=== PATIENT | male | born 1975 | race Two or more races ===

== ENCOUNTER 2022-12-28 17:02 | Emergency (ER) | payer MEDICAID, OTHER ==
[~2022-12-28] VITALS: Ht 167.6 cm; Wt 80.7 kg
[2022-12-28 17:18] VITALS: BP 146/89; TEMP 97.9; O2SAT 99
[2022-12-28] MEDS ORDERED: PANTOPRAZOLE 40 MG VIAL ONE (17:36)
[2022-12-28] MEDS ORDERED: ONDANSETRON HCL/PF 4 MG/2 ML VIAL ONE (17:36)
[2022-12-28] MEDS ORDERED: ONDANSETRON HCL/PF 4 MG/2 ML VIAL IVP ONE (18:00)
[2022-12-28] MEDS ORDERED: IV NS 0.9% 1,000 ML BAG IV ONE (18:00)
[2022-12-28] MEDS ORDERED: PANTOPRAZOLE 40 MG VIAL IV ONE (18:00)
== END 2022-12-28 18:12 | disposition left against medical advice (07) ==
LOC: ER 17:08
DX: R10.32 Left lower quadrant pain (principal); R10.31 Right lower quadrant pain; F17.200 Nicotine dependence, unspecified, uncomplicated
CPT/HCPCS: C9113; J2405